=== PATIENT | female | born 1995 | race Two or more races ===

== ENCOUNTER 2024-12-02 18:54 | Emergency (ER) | payer OTHER, MEDICAID ==
[~2024-12-02] VITALS: Ht 160 cm; Wt 51.7 kg
[2024-12-02] MEDS ORDERED: METHOCARBAMOL (500MG) 500 MG TABLET ONE (20:05)
[2024-12-02] MEDS ORDERED: ACETAMINOPHEN ES 500 MG TABLET ONE (20:05)
[2024-12-02] MEDS: METHOCARBAMOL (750MG) 750 MG TABLET PO SCH (20:08)
[2024-12-02] MEDS: ACETAMINOPHEN ES 500 MG TABLET PO ONE (20:09)
[2024-12-02] MEDS ORDERED: ACET-2030 PO (20:15)
[2024-12-02] MEDS ORDERED: METH-649 PO (20:15)
[2024-12-02] MEDS ORDERED: IBUP-1490 PO (20:15)
[2024-12-02 20:46] LABS: PREGNANCY TEST URINE QUAL NEGATIVE (NEGATIVE)
[2024-12-02 23:25] VITALS: BP 103/68; TEMP 97.9; O2SAT 100
== END 2024-12-02 23:25 | disposition home or self-care (01) ==
LOC: ER 19:01
DX: R51.9 Headache, unspecified (principal); M54.2 Cervicalgia; V43.52XA Car driver injured in collision with other type car in traffic accident, initial encounter; Y93.89 Activity, other specified; Y92.488 Other paved roadways as the place of occurrence of the external cause; Y99.8 Other external cause status
CPT/HCPCS: 84703-TC